=== PATIENT | female | born 1995 | race African-American/Black ===

== ENCOUNTER 2017-01-24 10:48 | Outpatient (CLI) | payer OTHER ==
[2016-06-16 00:12] VITALS: BP 121/70
[2017-01-24 11:37] LABS: eGFR (African) > 60; eGFR (Non-African) > 60
== END 2017-01-24 10:50 ==
LOC: LAB 10:48
PROVIDERS: ATTEND Family Medicine
DX: R40.4 Transient alteration of awareness (principal)
CPT/HCPCS: 80053

== ENCOUNTER 2017-04-29 16:30 | Emergency (ER) | payer OTHER ==
[2017-04-29] MEDS ORDERED: IPRATROPIUM/ALBUTEROL SULFATE 3 ML AMPUL.NEB NEB ONE (16:31)
[2017-04-29] MEDS: IPRATROPIUM/ALBUTEROL SULFATE 3 ML AMPUL.NEB NEB ONE (16:35)
[2017-04-29] MEDS ORDERED: BUDESONIDE 0.5MG/2ML AMPUL.NEB NEB ONE (16:38)
[2017-04-29] MEDS: methylPREDNISolone SOD SUCC 125 MG/2 ML VIAL IVP ONE (16:40)
[2017-04-29] MEDS: BUDESONIDE 0.5MG/2ML AMPUL.NEB NEB SCH (16:55)
[2017-04-29 16:59] LABS: BASOPHILS % 0.3 (0.0-1.5); EOSINOPHILS % 3.3 % (0.0-6.8); MEAN CORPUSCULAR VOLUME 78.8 fl (80.0-100.0); MONOCYTES % 2.5 % (0.0-11.0); NEUTROPHILS # 9.3 # k/uL (1.4-7.7)
[2017-04-29] MEDS: RACEPINEPHRINE HCL 1 EACH VIAL.NEB NEB ONE (17:10)
[2017-04-29 17:13] LABS: eGFR (African) > 60; eGFR (Non-African) > 60
--- NOTE | 2017-04-29 17:20 | ED Physician Documentation ---
General Adult - HISTORIAN Historian: patient - HPI Stated Complaint: SOA Chief Complaint: General Adult Onset: hours Timing: still present Severity: moderate Further Comments: yes (Pt is a 21 yo female with hx asthma who is wheezy with SpO2 = 85 % on presentation. Pt is acutely sob using accessory muscle in breathing and speaking in one word sentences.) - ROS CONST: weakness EYES/ENT: none CVS/RESP: shortness of breath GI/: none MS/SKIN/LYMPH: none NEURO/PSYCH: headache - PAST HX Past History: asthma Allergies/Adverse Reactions: Allergies Allergy/AdvReac Type Severity Reaction Status Date / Time No Known Allergies Allergy Verified 04/29/17 16:59 Home Medications: Ambulatory Orders Medication Instructions Recorded Albuterol [Ventolin] 0 gm IH PRN 09/30/12 - SOCIAL HX Smoking History: non-smoker - FAMILY HX Family History: No - VITAL SIGNS Vital Signs: Vital Signs Temp Pulse Resp BP Pulse Ox 121/70 06/16/16 00:08 - REVIEWED ASSESSMENTS Nursing Assessment Reviewed: Yes Vitals Reviewed: Yes Progress - Progress Progress: Duoneb HFN Solu-medrol 125 mg IV Pulmicort 0.5 mg HFN NS 500 cc IVF Racemic epi HFN Albuterol HFN Transfer to . [facility]. Dr. Reed. - EKG/XRAY/CT XRAY: chest (no acute process) ED Results Lab/Radiology - Lab Results Lab Results: Lab Results 04/29/17 04/29/17 04/29/17 16:50 16:50 16:50 WBC 11.30 K/ul K/ul (4.00-12.00) RBC 4.56 M/ul M/ul (3.90-5.20) Hgb 12.8 g/dL g/dL (12.0-16.0) Hct 35.9 % % (34.5-46.5) MCV 78.8 fl L fl (80.0-100.0) MCH 28.0 pg pg (28.0-34.0) MCHC 35.6 g/dL g/dL (30.0-36.0) RDW 13.9 % % (11.3-14.3) Plt Count 318 K/mm3 K/mm3 (130-400) Neut % (Auto) 82.1 % H % (39.0-79.0) Lymph % (Auto) 10.8 % L % (16.0-50.0) Beaver % (Auto) 2.5 % % (0.0-11.0) Eos % (Auto) 3.3 % % (0.0-6.8) Baso % (Auto) 0.3 (0.0-1.5) Neut # (Auto) 9.3 # k/uL H # k/uL (1.4-7.7) Lymph # (Auto) 1.2 # k/uL # k/uL (0.6-4.0) Beaver # (Auto) 0.3 # k/uL # k/uL (0.0-0.9) Eos # (Auto) 0.4 # k/uL # k/uL (0.0-0.6) Baso # (Auto) 0.0 # k/uL # k/uL (0.0-0.5) Reactive Lymphs % 1.0 % % (0.0-5.0) Reactive Lymphs # 0.1 # k/uL # k/uL (0.0-0.8) Sodium 142 mmol/L mmol/L (136-145) Potassium 3.5 mmol/L mmol/L (3.5-5.0) Chloride 108 mmol/L mmol/L (98-110) Carbon Dioxide 24 mmol/L mmol/L (20-32) BUN 7 mg/dL L mg/dL (10-26) Creatinine 0.7 mg/dL mg/dL (0.4-1.5) Estimated Creat Clear 242 Est GFR ( Amer) > 60 (60 - ) Est GFR (Non-Af Amer) > 60 (60 - ) Glucose 116 mg/dL H mg/dL (70-99) Calcium 9.6 mg/dL mg/dL (8.5-10.5) Total Bilirubin 0.8 mg/dL mg/dL (0.2-1.2) AST 21 U/L U/L (0-41) ALT 14 U/L U/L (0-45) Alkaline Phosphatase 89 U/L U/L (46-116) Total Protein 7.7 g/dL g/dL (6.0-8.5) Albumin 4.7 g/dL g/dL (3.0-5.5) Serum HCG, Qual Negative (NEGATIVE) - Orders Orders: ED Orders Category Date Time Status Arterial Blood Gas 1T Care 04/29/17 16:[address] IV Lock 1T Care 04/29/17 16:32 Active CHEST 1 VIEW [RAD] Stat Exams 04/29/17 Ordered CBC/PLATELET/DIFF Routine Lab 04/29/17 16:50 Completed CMP Routine Lab 04/29/17 16:50 Completed SERUM HCG Stat Lab 04/29/17 16:50 Completed 0.9 % Sodium Chloride [Normal Saline] 500 ml Med 04/29/17 17:17 Active IV NOW Budesonide [Pulmicort] Med 04/29/17 17:00 Ordered 0.5 mg NEB BID Ipratropium/Albuterol Sulfate [Duoneb] Med 04/29/17 16:31 Discontinued 3 ml NEB .STK-MED ONE Ipratropium/Albuterol Sulfate [Duoneb] Med 04/29/17 16:32 Discontinued 3 ml NEB NOW ONE Racepinephrine HCl [S-2] Med 04/29/17 17:02 Discontinued 1 each NEB NOW ONE methylPREDNISolone SOD SUCC [Solu-MEDROL] Med 04/29/17 16:32 Discontinued 125 mg IVP NOW ONE General Adult Physical Exam - PHYSICAL EXAM GENERAL APPEARANCE: moderate distress EENT: pharynx normal NECK: normal inspection, supple RESPIRATORY: wheezes, other (using accesory muscles, speaks in one word sentences) CVS: tachycardia ABDOMEN: soft, no organomegaly, normal bowel sounds BACK: normal inspection, no CVA tenderness SKIN: warm/dry, normal color EXTREMITIES: non-tender, normal range of motion, no evidence of injury NEURO: oriented X3, motor nml, sensation nml Discharge Clincal Impression: Asthma exacerbation Referrals: Richard Sage MD [Primary Care Provider] - Condition: Stable Disposition: XFER [id number]-TRM HOSP Decision to Admit: NO Decision Time: 18:31
[2017-04-29] MEDS: 0.9 % SODIUM CHLORIDE 500 ML IV ONE (17:24)
[2017-04-29 17:29] LABS: ABG BASE EXCESS -0.6 (-2 - +2); ABG PH 7.44 (7.35-7.45)
--- NOTE | 2017-04-29 17:34 | Diagnostic Imaging Report ---
[facility] [address] [facility] [place], [place]. [address] Report Submission Date: Apr 29, 2017 5:09:15 PM CDT Patient Study Name: GUSTAVO KING Date: Apr 29, 2017 4:49:39 PM CDT Modality Type: CR Gender: F Description: CHEST : 89 Institution: [facility] Physician: OSMIN GOMEZ - ER Examination: Portable chest History: Chest discomfort Comparison exam: None available for direct review. Findings: Single view of the chest demonstrates a normal cardiac and mediastinal silhouette. Lung cha without focal infiltrate. No effusion. Osseous structures are appropriate for age. Impression: No acute pulmonary process. Electronically signed on Apr 29, 2017 5:09:15 PM CDT by: Wood KAMARA
[2017-04-29] MEDS ORDERED: KETOROLAC TROMETHAMINE 30 MG/1ML VIAL ONE (17:37)
[2017-04-29] MEDS: KETOROLAC TROMETHAMINE 30 MG/1ML VIAL IVP ONE (17:46)
[2017-04-29] MEDS: ALBUTEROL SULFATE 2.5 MG/3 ML AMPUL.NEB NEB ONE (18:27)
[2017-04-29 19:44] VITALS: BP 109/62
== END 2017-04-29 19:41 | disposition short-term general hospital (02) ==
LOC: ED 16:30
DX: J45.901 Unspecified asthma with (acute) exacerbation (principal)
CPT/HCPCS: 36600; 71010; 80053; 82803; 84703; 85025; J1885; J2930; J7060; J7626; 96361; 96374; 99284; S1016

== ENCOUNTER 2017-08-22 20:02 | Emergency (ER) | payer OTHER ==
[2017-08-22] MEDS ORDERED: CEPHALEXIN 250 MG CAPSULE PO ONE (20:44)
--- NOTE | 2017-08-22 20:51 | ED Physician Documentation ---
Upper Respiratory Symptoms - HISTORIAN Historian: patient - HPI Stated Complaint: Chest congestion/Sore throat Chief Complaint: Cough/ Upper Respiratory Onset: days ago (3-4) Duration: sudden-Onset Context: denies: recent foreign travel, insect bite(s), tick(s), recent chemotherapy, multiple patients, same sx Severity: moderate Associated Symptoms: chills, sinus drainage, sore throat, productive cough Worsened by Deep Breath: Yes Further Comments: no - ROS CONST/EYES: denies: weakness, eye redness, eye itching CVS/RESP: shortness of breath LYMPH: denies: leg swelling, rash, swollen glands, ankle swelling GI/: none NEURO/PSYCH: denies: fainting, dizziness, confusion, anxiety, depression MS/SKIN: denies: joint pain, muscle aches, rash - PAST HX Lung Disease: asthma Surgeries/Procedures: none Immunizations: referred to PCP Allergies/Adverse Reactions: Allergies Allergy/AdvReac Type Severity Reaction Status Date / Time No Known Allergies Allergy Verified 08/22/17 20:23 Home Medications: Ambulatory Orders Medication Instructions Recorded Albuterol [Ventolin] 17 gm IH PRN 09/30/12 - SOCIAL HX Smoking History: non-smoker Alcohol Use: occasionally Drug Use: none - FAMILY HX Family History: no significant history - VITAL SIGNS Vital Signs: Vital Signs Temp Pulse Resp BP Pulse Ox 98.6 F 98 H 18 116/72 98 08/22/17 21:05 08/22/17 21:05 08/22/17 21:05 08/22/17 21:05 08/22/17 21:05 - REVIEWED ASSESSMENTS Nursing Assessment Reviewed: Yes Vitals Reviewed: Yes Progress - Results/Orders Results/Orders: strep, flu a and b ordered - Progress Progress: pt. given 1000 mg keflex p.o. in er Critical Care Note - Critical Care Note Total Time (mins): 0 ED Results Lab/Radiology - Lab Results Lab Results: strep, flu a and b neg - Radiology Radiology Impressions: none ordered - Orders Orders: ED Orders Category Date Time Status GRP A STREP SCREEN Routine Lab 08/22/17 Ordered INFLUENZA A&B Routine Lab 08/22/17 20:15 Ordered Cephalexin [Keflex] Med 08/22/17 20:44 Discontinued 1,000 mg PO NOW ONE Upper Respiratory Symptoms - EXAM General Appearance: alert, moderate distress EENT: eyes nml inspection, lids & conjunct. nml, PERRL, ear nml, mucosal edema, pharynx nml. No: pain over sinuses Neck: normal inspection, thyroid normal, supple Respiratory: no resp. distress, wheezes (sandeep mild, scattered) Abdomen: non-tender, no organomegaly, nml bowel sounds, no distention CVS: reg rate & rhythm, heart sounds normal Skin: color nml, no rash, warm,dry Extremities: non-tender, normal range of motion, no evidence of injury Neuro/Psych: oriented x3, neuro intact, mood/affect nml Discharge Clincal Impression: Upper respiratory infection Qualifiers: URI type: unspecified URI Qualified Code(s): J06.9 - Acute upper respiratory infection, unspecified Referrals: Richard Sage MD [Primary Care Provider] - 2 Days Comments: Discharged in stable condition with script for Keflex 500 mg 2 capsules twice daily for 1 week 28, generic, no refill Condition: Stable Disposition: 01 HOME, SELF-CARE Decision to Admit: NO Decision Time: 20:50
[2017-08-22 21:09] VITALS: BP 116/72
== END 2017-08-22 21:05 | disposition home or self-care (01) ==
LOC: ED 20:02
DX: J06.9 Acute upper respiratory infection, unspecified (principal)
CPT/HCPCS: 87070; 87400; 87880; 99283

== ENCOUNTER 2019-06-01 15:52 | Emergency (ER) | payer BC, OTHER ==
--- NOTE | 2019-06-01 16:08 | ED Physician Documentation ---
Sore Throat/Dental Pain - HISTORIAN Historian: patient - HPI Stated Complaint: right lower dental pain Chief Complaint: Dental Pain Additional Information: Patient presents to ED with a 2 day history of right lower jaw pain and sw elling. Patient states she thinks she cracked a tooth last week. Today she woke up with right jaw swelling. She is 36 weeks gestation. She has an appointment with dentist next week. Onset: days ago (7) Context: Fractured Tooth Associated Symptoms: denies: fever Worsened By: cold - ROS CONST: no problems CVS/RESP: none GI/: denies: nausea, vomiting NEURO/PSYCH: none - PAST HX Past History: none Other History: none Allergies/Adverse Reactions: Allergies Allergy/AdvReac Type Severity Reaction Status Date / Time No Known Allergies Allergy Verified 06/01/19 16:11 Home Medications: Ambulatory Orders Medication Instructions Recorded Albuterol Sulfate [Ventolin] 17 gm IH PRN 09/30/12 Fluticasone Propionate [Flovent 50 50 mcg IH BID 06/01/19 Mcg Diskus] Penicillin V Potassium [Pen V K] 500 mg PO Q8 #30 tablet 06/01/19 - SOCIAL HX Smoking History: non-smoker Alcohol Use: none Drug Use: none - FAMILY HX Family History: No - VITAL SIGNS Vital Signs: Vital Signs Temp Pulse Resp BP Pulse Ox 116/72 08/22/17 21:05 - REVIEWED ASSESSMENTS Nursing Assessment Reviewed: Yes Vitals Reviewed: Yes Dental Pain Physical Exam - EXAM General Appearance: no acute distress, alert Head/Neck: trachea midline, no lymphadenopathy, mandibular swelling (R) Eyes: PERRL Mouth/Throat: gums nml, other (right lower molar broken with missing piece) Ear/Nose: nml inspection Respiratory: no resp. distress, breath sounds nml CVS: reg. rate & rhythm, heart sounds nml Abdomen: soft, normal bowel sounds Extremities: non-tender, nml ROM Skin: warm/dry, normal color Neuro/Psych: none Discharge Clincal Impression: Fractured tooth Qualifiers: Encounter type: initial encounter Fracture type: closed Qualified Code(s): S02.5XXA - Fracture of tooth (traumatic), initial encounter for closed fracture Prescriptions: Penicillin V Potassium [Pen V K] 500 mg PO Q8 #30 tablet Referrals: Primary Doctor,No [Primary Care Provider] - 2 Days Additional Instructions: 1. Tylenol 1000mg every 6 hours as needed for pain 2. Take antibiotic until gone 3. Salt/baking soda mouth rinses after each meal and snack. (1 tsp salt/ 1 tsp baking soda in 4 ounces warm water) 4. Follow up with dentist next week as already scheduled 5. Return to ER for new or worsening symptoms Condition: Stable Disposition: 01 HOME, SELF-CARE Decision to Admit: NO Date of Decison to Admit: 06/01/19 Decision Time: 16:13
[2019-06-01 16:10] VITALS: BP 120/77
== END 2019-06-01 16:20 | disposition home or self-care (01) ==
LOC: ED 15:52
DX: S02.5XXA Fracture of tooth (traumatic), initial encounter for closed fracture (principal); X58.XXXA Exposure to other specified factors, initial encounter
CPT/HCPCS: 99283; 99284